=== PATIENT | female | born 1965 | race Caucasian/White ===

== ENCOUNTER 2017-01-19 09:07 | Emergency (ER) | payer OTHER ==
[2017-01-19] MEDS ORDERED: methylPREDNISolone SODIUM SUC 125 MG/2 ML VIAL IM ONE (09:15)
--- NOTE | 2017-01-19 09:18 | ED.PDOC ---
History of Present Illness - General Chief Complaint: Allergic Reaction Stated Complaint: allergic reaction Time Seen by Provider: 01/19/17 09:14 Source: patient, RN notes reviewed, Vital Signs reviewed Exam Limitations: no limitations - History of Present Illness Initial Comments: Patient started to have an allergic reaction with her throat closing and starting to have difficulty breathing. She used her Epipen and took 4 Benadryl. Currently she is feeling better just a little jittery. Timing/Duration: momentarily Severity: severe Improving Factors: medication Worsening Factors: nothing Associated Symptoms: shortness of breath Home Medications: Ambulatory Orders Epinephrine [Epipen 2-Ruiz] 0.3 mg IJ ONCE PRN #1 pack 01/19/17 methylPREDNISolone TAB [Medrol Tab] 4 mg PO DAILY #1 pack 01/19/17 Review of Systems - Review of Systems Constitutional: States: no symptoms reported EENTM: States: throat swelling Respiratory: States: short of breath Cardiology: States: no symptoms reported Gastrointestinal/Abdominal: States: no symptoms reported Skin: States: no symptoms reported All other Systems: No Change from Baseline Family Medical History - Family History Mother Family History: Unknown Physical Exam - Physical Exam General Appearance: Alert, Comfortable, No apparent distress, Well Developed, Well Groomed, Well Hydrated, Well Nourished Ears, Nose, Throat: tonsillar swelling - mild Neck: non-tender, full range of motion, supple, normal inspection Respiratory: lungs clear, normal breath sounds, no respiratory distress, no accessory muscle use Cardiovascular/Chest: no edema, no gallop, no JVD, no murmur, tachycardia Extremity: normal range of motion, normal inspection Neurologic: alert, normal mood/affect, oriented x 3 Skin Exam: normal color, warm/dry Progress - Progress Progress: 01/19/17 09:58 She is continuing to do well. No breathing problems. Will d/c home with refills of her Rx. Departure - Departure Clinical Impression: Anaphylaxis Qualifiers: Encounter type: initial encounter Qualified Code(s): T78.2XXA - Anaphylactic shock, unspecified, initial encounter Time of Disposition: 09:59 Disposition: Discharge to Home or Self Care Condition: Good Departure Forms: ED Discharge - Pt. Copy, Patient Portal Self Enrollment Instructions: DI for General Allergic Reactions Diet: resume usual diet Activity: increase activity as tolerated Prescriptions: Epinephrine [Epipen 2-Ruiz] 0.3 mg IJ ONCE PRN #1 pack PRN Reason: Allergies methylPREDNISolone TAB [Medrol Tab] 4 mg PO DAILY #1 pack Home Medications: Ambulatory Orders Epinephrine [Epipen 2-Ruiz] 0.3 mg IJ ONCE PRN #1 pack 01/19/17 methylPREDNISolone TAB [Medrol Tab] 4 mg PO DAILY #1 pack 01/19/17
[2017-01-19 09:26] VITALS: BP 158/62; TEMP 98.6; O2SAT 99
== END 2017-01-19 10:10 | disposition home or self-care (01) ==
LOC: ER 09:07
DX: T78.2XXA Anaphylactic shock, unspecified, initial encounter (principal)

== ENCOUNTER → 2017-02-16 | Outpatient (CLI) | payer OTHER ==
--- NOTE | 2017-02-16 16:28 | MAM ---
History: Follow-up benign needle biopsy left breast. Time for bilateral evaluation. DATE OF SERVICE: 02/16/2017 Services provided: Full field digital bilateral diagnostic mammography. CAD, the images were reviewed with R2 computer aided detection. FINDINGS: Routine and true lateral views are obtained. Exaggerated lateral craniocaudal projection views are also performed. Glandular tissue is significantly dense. Distribution is grossly stable since 2011. No dominant mass, architectural distortion or clustered microcalcification. IMPRESSION: Benign exam. No mammographic evidence for malignancy. Recommendation: Routine annual mammography. Findings and recommendations were communicated to the patient. BIRAD CATEGORY: 2 BENIGN Electronically signed by: Yazmin Valiente MD 02/16/2017 4:28 PM CDT Workstation: [id number]
== END | disposition home or self-care (01) ==
LOC: MAMMO 15:33
PROVIDERS: ATTEND Obstetrics & Gynecology
DX: R92.8 Other abnormal and inconclusive findings on diagnostic imaging of breast (principal)

== ENCOUNTER → 2018-02-26 | Outpatient (CLI) | payer OTHER ==
--- NOTE | 2018-02-27 15:08 | MAM ---
EXAM DESCRIPTION: 3D Screening BILATERAL : Digital Mammography. CLINICAL HISTORY: 52 years Female SCREENING . No complaints. No family history breast cancer. Childbirth. Postmenopausal. Currently on HRT. Cyst aspiration and biopsy on the left benign. COMPARISON: 2-D digital screening bilateral study 04/18/2016.. Diagnostic left breast digital mammography 6. Reports from prior examinations also reviewed. TECHNIQUE: Bilateral CC and MLO projection full-field images, 3-D tomosynthesis digital mammographic technique. CAD not utilized. FINDINGS: The breast parenchymal density pattern is: Heterogeneously dense breast tissue, which may obscure small masses. No skin thickening or nipple retraction. Bilateral solitary microcalcifications. Bilateral axillary lymph nodes. No focal, stellate mass or density, focal asymmetry , and no suspicious microcalcifications bilaterally. Stable mammograms compared to prior study, taking into account differences in mammographic technique IMPRESSION: BI-RADS CATEGORY: 2 - BENIGN FINDINGS. FOLLOW UP: Routine digital bilateral screening, one year interval from February 2018. Written communication explaining the IMPRESSION and follow-up, will be mailed to the patient and referring health care provider. According to the [employer], yearly mammograms are recommended starting at age 40 and continuing as long as a woman is in good health. Any breast change noted on a breast self-exam should be reported promptly to the patient's healthcare provider. Breast MRI is recommended for women with an approximately 20-25% or greater lifetime risk of breast cancer, including women with a strong family history of breast or ovarian cancer and women who have been treated for Hodgkin's disease. A negative mammographic report should not delay tissue diagnosis in patients with significant clinical history or physical findings. Extremely dense breast tissue limits the sensitivity of digital mammography. Electronically signed by: Rocky Cook MD 02/27/2018 3:07 PM CDT
== END ==
LOC: MAMMO 08:00
PROVIDERS: ATTEND Obstetrics & Gynecology
DX: Z12.31 Encounter for screening mammogram for malignant neoplasm of breast (principal)